=== PATIENT | female | born 1995 | race Caucasian/White ===

== ENCOUNTER → 2021-03-25 | Outpatient (CLI) | payer OTHER ==
--- NOTE | 2021-03-25 22:53 | MR ---
MR angiogram of the neck HISTORY: TIA [id number] imaging obtained through the neck. Three-dimensional reconstructions were performed. T his cannot be stated with certainty No comparisons. The common carotid, internal and extra carotid arteries are patent. There is no significant stenosis of the proximal internal carotid arteries by NASCET criteria. Transverse aorta is patent. Vertebral a rteries are patent codominant. 3 super aortic branch vessels are present at the level of the aorta. T here is some artifact on the exam. At the base of the skull level some signal drop is present within the distal internal carotid arteries which is likely artifactual. IMPRESSION: No evident stenosis of the proximal internal carotid arteries. Probable artifact at the b ase of the skull within the internal carotid arteries although this is not a certainty.
== END | disposition home or self-care (01) ==
LOC: RADMRIMAIN 19:44
PROVIDERS: ATTEND Family Medicine
DX: G45.9 Transient cerebral ischemic attack, unspecified (principal)
CPT/HCPCS: 70547